=== PATIENT | male | born 1980 | race African-American/Black ===

== ENCOUNTER 2019-06-06 20:28 | Emergency (ER) | payer OTHER ==
[~2019-06-06] VITALS: Ht 180.3 cm; Wt 113.4 kg
[2019-06-06] MEDS ORDERED: NORCO 5-325 TA1 EAC1 PO (21:56)
[2019-06-06 22:53] VITALS: BP 138/80
== END 2019-06-06 22:55 | disposition home or self-care (01) ==
LOC: M.ERS 20:28
DX: S93.491A Sprain of other ligament of right ankle, initial encounter (principal); M54.5 Low back pain; W18.39XA Other fall on same level, initial encounter; Y92.89 Other specified places as the place of occurrence of the external cause; Y93.89 Activity, other specified; Y99.8 Other external cause status